=== PATIENT | female | born 1975 | race Caucasian/White ===

== ENCOUNTER 2020-12-24 14:31 | Outpatient (CLI) | payer MEDICARE, SELFPAY | END 2020-12-24 14:32 | disposition home or self-care (01) | LOC: ANHCOVIDVC 14:31 | PROVIDERS: PCP Family Medicine Adolescent Medicine | DX: Z23 Encounter for immunization (principal) | CPT/HCPCS: 0001A; 91300 ==

== ENCOUNTER 2021-01-14 14:30 | Outpatient (CLI) | payer MEDICARE, SELFPAY | END 2021-01-14 14:31 | disposition home or self-care (01) | LOC: ANHCOVIDVC 14:31 | PROVIDERS: PCP Family Medicine Adolescent Medicine | DX: Z23 Encounter for immunization (principal) | CPT/HCPCS: 0002A; 91300 ==

== ENCOUNTER 2021-04-11 17:27 | Emergency (ER) | payer MEDICARE, SELFPAY ==
--- NOTE | ~2021-04-11 | CT_ITS ---
EXAMINATION: CT abdomen pelvis w con INDICATION: Lower abdominal pain TECHNIQUE: Computed tomographic images of the abdomen and pelvis were obtained after the administrati on of 100 cc of Omnipaque 350 intravenous contrast. The dose-length product (DLP) was 1350.49 mGy-cm. Automated exposure control and iterative reconstruction technique were employed. COMPARISON: None available FINDINGS: Minimal dependent atelectasis is present in the lung bases. The heart size is normal. The l iver, spleen, pancreas, gallbladder, and adrenal glands are normal. The right kidney is unremarkable. There is a 10 mm cyst of the left kidney. No pathologically enlarged abdominal or pelvic lymph nodes are identified. There is no free intraperitoneal gas or evidence of bowel obstruction. The appendix is normal. There is circumferential wall thickening of the ascending and transverse colon. An IUD is present in the uterus in expected position. The appendix is normal. There is moderate to severe lower lumbar spondylosis. IMPRESSION: 1. Wall thickening of the ascending and transverse colon, consistent with colitis. Reviewed, dictated and finalized at location A. IMPRESSION: 1. Wall thickening of the ascending and transverse colon, consistent with colit is.
[2021-04-11 18:14] VITALS: BP 150/96; PULSE 108; RESP 16; TEMP 36.7; O2SAT 100
[2021-04-11 19:56] LABS: Basophils Percent Auto 0.2 % (0.2-1.2); Eosinophils Percent Auto 0.1 % (0-4.4); Hematocrit 43.3 % (37.0-47.0); Hemoglobin 14.1 g/dL (12.0-15.0); Immature Granulocyte Absolute 0.08 K/mm3 (0.00-0.031); Immature Granulocyte Percent A 0.5 % (0-0.5); Lymphocytes Absolute Auto 1.55 K/mm3 (0.9-3.2); Mean Corpuscular HGB Conc 32.6 g/dl (32-36); Mean Corpuscular Hemoglobin 27.6 pg (26-34); Mean Corpuscular Volume 84.9 fl (80-100); Mean Platelet Volume 10.4 fl (7.4-10.4); Monocytes Absolute Auto 0.4 K/mm3 (0.1-0.6); Monocytes Percent Auto 2.4 % (2.6-8.5); Neutrophils Absolute Auto 15.1 K/mm3 (1.3-6.7); Neutrophils Percent Auto 87.8 % (45.5-73.1); Platelet Count Result 302 k/mm3 (150-375); Red Cell Distribution Width 14.8 % (11.5-14.5); White Blood Count 17.2 K/mm3 (4.5-10.0)
[2021-04-11 20:07] LABS: Add Urine Microscopic? YES; Appearance Urine Clear (Clear); Bilirubin Urine Negative (Negative); Blood Urine Negative (Negative); Color Urine Yellow (Yellow); Glucose Urine UA Negative (Negative); Ketones Urine Negative (Negative); Leukocyte Esterase Ur Negative LEU/UL (Negative); Mucus Urine Rare /lpf; Nitrate Urine Negative (Negative); Protein Urine 1+ mg/dL (Negative); RBC Urine 0-2 /hpf (0-2); Specific Grav Ur 1.014 (1.001-1.035); Squamous Epithelial Cell Urine Occasional /hpf (Few); Urobilinogen Urine Negative mg/dL (<2.0); WBC Urine 0-3 /hpf
[2021-04-11 20:10] LABS: Alanine Aminotransferase 28 U/L (4-35); Albumin Level 4.7 g/dL (3.5-5.1); Alkaline Phosphatase 116 U/L (38-126); Anion Gap 12 mmol/L (8-16); Aspartate Amino Transferase 27 U/L (14-36); Bilirubin,Total 0.3 mg/dL (0.2-1.3); Blood Urea Nitrogen 9 mg/dL (7-17); Calcium 9.9 mg/dL (8.4-10.2); Carbon Dioxide 22 mmol/L (22-30); Chloride 107 mmol/L (98-107); Estimated CRCL calculation 89 ml/min; Estimated Glomerular Filt Rate > 60; Glucose 118 mg/dL (65-110); Lipase 78 U/L (23-300); Potassium 3.9 mmol/L (3.4-5.0); Sodium 141 mmol/L (137-145)
[2021-04-11] MEDS: SODIUM CHLORIDE 0.9% IV 1,000 ML 999 ML IV CONT (20:29)
[2021-04-11 20:44] VITALS: BP 159/101; PULSE 70; RESP 20; O2SAT 97
[2021-04-11 21:44] VITALS: BP 180/99; PULSE 68; RESP 22; O2SAT 91
--- NOTE | 2021-04-11 21:58 | ED.NAVMDI ---
HPI - Nausea/Vomiting/Diarrhea General Chief complaint: Nausea/Vomiting/Diarrhea Stated complaint: n/v and passing blood from rectum Time Seen by Provider: 04/11/21 19:53 History of Present Illness HPI Narrative: Patient is a 45-year-old female who presents ER with abdominal pain and diarrhea. Abdominal pain is cramping. Started after eating some chicken salad this morning. Associate with some nausea and vomiting. Diarrhea had some blood with it this is recurred several times today feels like she is passing 2 tablespoons of blood at a time. No fevers or chills or sweats. No known sick contacts. No urinary frequency urgency or dysuria. Okay Related Data Allergies Allergy/AdvReac Type Severity Reaction Status Date / Time No Known Allergies Allergy Verified 04/11/21 19:28 Review of Systems Review of Systems: All systems reviewed & are unremarkable except as noted in HPI and below Constitutional: Constitutional: Denies chills, Denies fever(s) and Denies weakness ENT: Denies nasal congestion and Denies sore throat Gastrointestinal: Gastrointestinal: Reports abdominal pain, Reports bloating, Denies constipation, Reports diarrhea, Reports nausea and Reports vomiting Genitourinary: Genitourinary: Denies nocturia, Denies dysuria and Denies flank pain PMFSH Past Medical History Medical History (Updated 04/11/21 @ 22:03 by Shawn Lundberg MD) Asthma Hypertension IBS (irritable bowel syndrome) Surgical History Surgical History (Updated 04/11/21 @ 22:00 by Shawn Lundberg MD) H/O foot surgery Social History Social History (Updated 04/11/21 @ 22:00 by Shawn Lundberg MD) Smoking status: Current every day smoker Gender identity (if verbalized by the patient): Female Exam Narrative: GENERAL: Well-appearing, well-nourished, and in no acute distress. HEAD: Normocephalic, atraumatic. EYES: PERRL and EOMI. ENT: Mucous membranes moist CHEST: Clear to auscultation. No respiratory distress. HEART: Regular rate and rhythm. Normal peripheral pulses. ABDOMEN: Soft, nontender, nondistended. EXTREMITIES: Normal range of motion. No edema. SKIN: Warm, dry, no rash. NEURO: Alert and oriented x3. Course Course Emergency Course: Patient informed of results. Resting comfortably. No reproducible abdominal pain. Cipro Flagyl for home. Vital Signs Vital signs: Vital Signs Temperature 98.1 F 04/11/21 18:14 Pulse Rate 108 H 04/11/21 18:14 Respiratory Rate 16 04/11/21 18:14 Blood Pressure 150/96 H 04/11/21 18:14 Pulse Oximetry 100 04/11/21 18:14 Temperature 98.1 F 04/11/21 18:14 Pulse Rate 68 04/11/21 21:44 Respiratory Rate 22 H 04/11/21 21:44 Blood Pressure 180/99 H 04/11/21 21:44 Pulse Oximetry 91 04/11/21 21:44 MDM - Nausea/Vomiting/Diarrhea Lab Data Result diagrams: 04/11/21 19:49 04/11/21 19:49 Labs: Lab Results 04/11/21 04/11/21 04/11/21 Range/Units 19:49 19:49 19:49 WBC 17.2 H (4.5-10.0) K/mm3 RBC 5.10 (4.2-5.4) M/mm3 Hgb 14.1 (12.0-15.0) g/dL Hct 43.3 (37.0-47.0) % MCV 84.9 (80-100) fl MCH 27.6 (26-34) pg MCHC 32.6 (32-36) g/dl RDW 14.8 H (11.5-14.5) % Plt Count 302 (150-375) k/mm3 MPV 10.4 (7.4-10.4) fl Immature Gran % (Auto) 0.5 (0-0.5) % Neut % (Auto) 87.8 H (45.5-73.1) % Lymph % (Auto) 9.0 L (18.3-44.2) % Callaway % (Auto) 2.4 L (2.6-8.5) % Eos % (Auto) 0.1 (0-4.4) % Baso % (Auto) 0.2 (0.2-1.2) % Lymph # (Auto) 1.55 (0.9-3.2) K/mm3 Callaway # (Auto) 0.4 (0.1-0.6) K/mm3 Eos # (Auto) 0.0 (0-0.3) K/mm3 Baso # (Auto) 0.0 (0.0-0.1) K/mm3 Abs Immat Gran (auto) 0.08 H (0.00-0.031) K/mm3 Absolute Neuts (auto) 15.1 H (1.3-6.7) K/mm3 Absolute Nucleated RBC 0.0 (0.0-0.012) K/mm3 Nucleated RBC % 0.0 (0.0-0.2) % Sodium 141 (137-145) mmol/L Potassium 3.9 (3.4-5.0) mmol/L Chloride 107 (98-107) mmol/L Carbo
[2021-04-11 22:24] VITALS: BP 170/80; PULSE 72; RESP 16; O2SAT 98
== END 2021-04-11 22:16 | disposition home or self-care (01) ==
PROVIDERS: Emergency Provider Emergency Medicine; PCP Family Medicine Adolescent Medicine
DX: K52.9 Noninfective gastroenteritis and colitis, unspecified (principal); J45.909 Unspecified asthma, uncomplicated; I10 Essential (primary) hypertension; K58.9 Irritable bowel syndrome, unspecified; F17.200 Nicotine dependence, unspecified, uncomplicated
CPT/HCPCS: 36415; 74177; 80053; 81001; 81025; 83690; 85025; 96360; 99284; J7030; Q9967

== ENCOUNTER 2022-01-25 10:45 | Outpatient (CLI) | payer MEDICARE, SELFPAY ==
--- NOTE | ~2022-01-25 | MR_ITS ---
EXAMINATION: MR lumbar spine wo con DATE: 01/25/2022 11:15 INDICATION: Sciatica, right side. Low back pain. TECHNIQUE: Magnetic resonance imaging (MRI) of the lumbar spine was performed without intravenous con trast. Sequences included sagittal T2-weighted FSE, sagittal T2-weighted FS FSE, sagittal T1-weighted FSE, and axial T2-weighted FSE. COMPARISON: Lumbar spine MRI 04/08/2016 FINDINGS: There is 8 degrees levocurvature of lumbar spine. Vertebral body heights are normal. There is mildly decreased disc height at L3 than L4 and L4-L5 and severely decreased disc height at L5-S1 w ith endplate remodeling. The distal spinal cord signal intensity is normal. The conus medullaris is a t T12-L1. The following disc levels are specifically discussed: L1-L2: The disc does not extend beyond the endplate margin. There is mild bilateral facet joint osteo arthritis. There is no neural foraminal stenosis. There is no central canal stenosis. L2-L3: The disc does not extend beyond the endplate margin. There is severe bilateral facet joint ost eoarthritis. There is no neural foraminal stenosis. There is no central canal stenosis. L3-L4: There is an extrusion from the left foraminal to left central zones. There is moderate bilater al facet joint osteoarthritis. There is mild right and moderate left neural foraminal stenosis. There is mild central canal stenosis. Posterior decompression is noted. L4-L5: The disc is bulging. There is severe bilateral facet joint osteoarthritis. There is moderate b ilateral neural foraminal stenosis. There is mild central canal stenosis. There is moderate stenosis of right lateral recess. Posterior decompression is noted. L5-S1: The disc is bulging and has an annular fissure. There is moderate bilateral facet joint osteoa rthritis. There is mild right and moderate left neural foraminal stenosis. There is mild central selene l stenosis. There is posterior decompression. IMPRESSION: 1. Severe lower lumbar spondylosis, stable from 04/08/2016. Reviewed, dictated and finalized at location B.
== END 2022-01-25 10:46 ==
PROVIDERS: PCP Family Medicine Adolescent Medicine; Visit Provider Physician Assistant
DX: M54.31 Sciatica, right side (principal); M47.896 Other spondylosis, lumbar region
CPT/HCPCS: 72148

== ENCOUNTER 2023-01-19 01:13 | Day surgery (SDC) | payer MEDICARE, SELFPAY ==
[2023-01-11 15:15] VITALS: BMI 46.3
--- NOTE | 2023-01-18 15:34 | PM.HPGS ---
History of Present Illness History of Present Illness Consent: Risks, benefits, and alternatives have been discussed and questions answered. Patient agrees to proceed with procedure. Chief complaint: neoplasm screening Narrative: Dafne Malcolm is a 47 year old female Referred for colon cancer screening. Review of Systems Review of Systems: All systems reviewed & are unremarkable except as noted in HPI and below PMFSH Past Medical History Medical History Anxiety Asthma Bilateral sciatica Chronic headaches Congestion of nasal sinus Depression Fibromyalgia Hypertension IBS (irritable bowel syndrome) Lumbar spondylosis Lumbar stenosis Mild persistent asthma Obstructive sleep apnea (adult) (pediatric) Trochanteric bursitis of right hip Wears glasses Weight gain Wheezing Surgical History Surgical History H/O foot surgery History of back surgery Family History Family History Mother Cervical cancer Grandparent Breast cancer Heart disease Cerebrovascular accident Father Heart disease Diabetes mellitus Other Arthritis Asthma Depression Hypertension Social History Social History Smoking status: Current every day smoker Second hand tobacco smoke exposure: No Alcohol intake: never Substance use: current Substance use type: marijuana Other substance usage details: Daily Living arrangements: with family Occupation/Education: other Gender identity (if verbalized by the patient): Female Sexual Orientation (if Verbalized by the Patient): Straight or Heterosexual Spiritual care concerns: No Agree to blood products: Yes Meds Home Medications and Allergies Home Medications Medication Instructions Recorded Confirmed Type albuterol sulfate 90 mcg/actuation 2 puff inhalation Q4H PRN 08/31/22 01/11/23 Rx aerosol inhaler (Ventolin HFA) shortness of breath or wheezing #8.5 grams amitriptyline 50 mg tablet 50 mg PO TID #90 tabs 08/31/22 01/11/23 Rx buspirone 15 mg tablet 15 mg PO BID #60 tabs 08/31/22 01/11/23 Rx pregabalin 75 mg capsule 75 mg PO BID #60 caps 08/31/22 01/11/23 Rx zolpidem 10 mg tablet 10 mg PO QHS PRN insomnia #30 tabs 10/03/22 01/11/23 Rx duloxetine 60 mg capsule,delayed 60 mg PO DAILY #30 caps 12/13/22 01/11/23 Rx release fluticasone propionate 115 2 puff inhalation BID #12 grams 12/13/22 01/19/23 Rx mcg-salmeterol 21 mcg/actuation HFA inhaler (Advair HFA) lisinopril 20 mg tablet 20 mg PO BID #180 tabs 12/13/22 01/11/23 Rx tizanidine 4 mg tablet 4 mg PO Q6H PRN muscle spasticity 01/02/23 01/11/23 Rx #40 tabs Allergies Allergy/AdvReac Type Severity Reaction Status Date / Time No Known Allergies Allergy Verified 01/19/23 07:35 Exam Const: General: alert Orientation/consciousness: patient oriented x3 Resp: Auscultation: clear to auscultation bilaterally Cardio: Rhythm: regular rhythm GI: GI Palp: Yes Soft to palpation and No Tenderness to palpation present (GI) Neuro: General: patient oriented x3 Assessment and Plan Assessment and plan (1) Colon cancer screening: Code(s): Z12.11 - Encounter for screening for malignant neoplasm of colon Status: Acute Assessment and Plan: Colonoscopy with possible biopsy or polypectomy or cautery or injection of substances.
[2023-01-19 07:37] VITALS: BP 142/96; PULSE 87; RESP 18; TEMP 36.6; O2SAT 99; BMI 44.7
[2023-01-19] MEDS: LACTATED RINGERS 1,000 ML 150 ML IV CONT (07:40)
--- NOTE | 2023-01-19 08:12 | WPDANESEPPF ---
Anes - Initial Pre Proc Eval Procedure: Operation Date: 01/19/23 08:30 Proposed Procedures p Screening Colonoscopy - Hugh Grady MD Date/Time: 01/19/23 08:12 Surgeon: Hugh Grady MD Pre Op Diagnosis: neoplasm screening Patient Data Age: 47 Gender: F Height: 1.57 m Weight: 110.9 kg Last Vital Signs Temp 97.8 F 01/19/23 07:37 Pulse 87 01/19/23 07:37 Resp 18 01/19/23 07:37 BP 142/96 H 01/19/23 07:37 Pulse Ox 99 01/19/23 07:37 O2 Del Method Room Air 01/19/23 07:37 Allergies Allergy/AdvReac Type Severity Reaction Status Date / Time No Known Allergies Allergy Verified 01/19/23 07:35 Home Medications Medication Instructions Recorded Confirmed Type albuterol sulfate 90 mcg/actuation 2 puff inhalation Q4H PRN 08/31/22 01/11/23 Rx aerosol inhaler (Ventolin HFA) shortness of breath or wheezing #8.5 grams amitriptyline 50 mg tablet 50 mg PO TID #90 tabs 08/31/22 01/11/23 Rx buspirone 15 mg tablet 15 mg PO BID #60 tabs 08/31/22 01/11/23 Rx pregabalin 75 mg capsule 75 mg PO BID #60 caps 08/31/22 01/11/23 Rx zolpidem 10 mg tablet 10 mg PO QHS PRN insomnia #30 tabs 10/03/22 01/11/23 Rx duloxetine 60 mg capsule,delayed 60 mg PO DAILY #30 caps 12/13/22 01/11/23 Rx release fluticasone propionate 115 2 puff inhalation BID #12 grams 12/13/22 01/19/23 Rx mcg-salmeterol 21 mcg/actuation HFA inhaler (Advair HFA) lisinopril 20 mg tablet 20 mg PO BID #180 tabs 12/13/22 01/11/23 Rx tizanidine 4 mg tablet 4 mg PO Q6H PRN muscle spasticity 01/02/23 01/11/23 Rx #40 tabs Patient hx anesthesia problems: none Family hx anesthesia problems: none Results Review: All pre-operative results and documents have been reviewed as part of the pre-operative evaluation. [facility] Past Medical History Medical History Anxiety Asthma Bilateral sciatica Chronic headaches Congestion of nasal sinus Depression Fibromyalgia Hypertension IBS (irritable bowel syndrome) Lumbar spondylosis Lumbar stenosis Mild persistent asthma Obstructive sleep apnea (adult) (pediatric) Trochanteric bursitis of right hip Wears glasses Weight gain Wheezing Surgical History Surgical History H/O foot surgery History of back surgery Family History Family History Mother Cervical cancer Grandparent Breast cancer Heart disease Cerebrovascular accident Father Heart disease Diabetes mellitus Other Arthritis Asthma Depression Hypertension Social History Social History Smoking status: Current every day smoker Second hand tobacco smoke exposure: No Alcohol intake: never Substance use: current Substance use type: marijuana Other substance usage details: Daily Living arrangements: with family Occupation/Education: other Gender identity (if verbalized by the patient): Female Sexual Orientation (if Verbalized by the Patient): Straight or Heterosexual Spiritual care concerns: No Agree to blood products: Yes Anes - Eval Final PreProcedure Day of Procedure 01/19/23 08:12 Patient weight: morbidly obese Heart: regular rate and rhythm Lungs: clear to auscultation Airway: Mallampati scale class III Neurological: alert and oriented Last oral intake: >/= 8 hours ASA classification: III Emergent: no Anesthetic plan: proceed Anesthesia type and monitoring: general GIVS and standard monitoring Results Review: All pre-operative results and documents have been reviewed as part of the pre-operative evaluation. Informed Consent: The patient's anesthetic plan and its attendant risks and benefits were discussed with the patient/family/POA. Questions were solicited and answers provided to the satisfaction of the patient/family/POA.
[2023-01-19 08:56] VITALS: BP 106/62; PULSE 86; RESP 22; O2SAT 100
[2023-01-19 09:06] VITALS: BP 122/71; PULSE 87; RESP 21; O2SAT 100
[2023-01-19 09:16] VITALS: BP 124/92; PULSE 73; RESP 24; O2SAT 100
== END 2023-01-19 09:20 | disposition home or self-care (01) ==
PROVIDERS: PCP Family Medicine Adolescent Medicine; Visit Provider Internal Medicine Gastroenterology
PROC: 0DJD8ZZ Inspection of Lower Intestinal Tract, Via Natural or Artificial Opening Endoscopic (ICD-10-PCS; CPT 45378; principal; 2023-01-19 08:30)
DX: Z12.11 Encounter for screening for malignant neoplasm of colon (principal); K63.5 Polyp of colon; I10 Essential (primary) hypertension; J45.30 Mild persistent asthma, uncomplicated; F41.9 Anxiety disorder, unspecified; F32.A Depression, unspecified; M79.7 Fibromyalgia; K58.9 Irritable bowel syndrome, unspecified; G47.33 Obstructive sleep apnea (adult) (pediatric); Z79.51 Long term (current) use of inhaled steroids; F12.90 Cannabis use, unspecified, uncomplicated; E66.01 Morbid (severe) obesity due to excess calories; Z68.41 Body mass index [BMI] 40.0-44.9, adult
CPT/HCPCS: 45380; 88305; J2704; J7120

== ENCOUNTER 2025-04-13 18:40 | Emergency (ER) | payer MEDICARE, SELFPAY ==
--- NOTE | ~2025-04-13 | CT_ITS ---
EXAMINATION: CT abdomen pelvis w con DATE: 04/13/2025 21:44 INDICATION: RUQ abdominal pain TECHNIQUE: Computed tomography (CT) of the abdomen and pelvis was performed with 100 mL Omnipaque-350 intravenous contrast. Automated exposure control and iterative reconstruction technique were employe d. The dose-length product was 832.84 mGy-cm. COMPARISON: 04/11/2021. FINDINGS: Lower thorax: Dependent scar/atelectasis. Liver: Normal. Biliary/Gallbladder: Gallbladder is normal. No bile duct dilation. Pancreas: No mass or duct dilation. Spleen: Normal. Adrenals:No mass. Kidneys: No suspicious mass, obstructing stone, or hydronephrosis. Simple exophytic left upper pole c yst GI tract: Mild distal esophageal and gastric wall edema. No small or large bowel dilation. Hypermobil e cecum. Normal appendix. Mesentery/Peritoneum: No ascites, mass, or free air. Retroperitoneum: No mass. Pelvis: Normal urinary bladder. IUD, in good position. Otherwise normal uterus. Normal bilateral ovar ies. Simple appearing 2.3 right ovarian cyst. Right corpus luteal cyst. Simple cyst or dominant folli katharine in the left ovary.. Soft Tissues: Small uncomplicated fat-containing umbilical hernia. Bones: No acute osseous finding. IMPRESSION: Mild esophagitis/gastritis. Reviewed, dictated and finalized at location K. IMPRESSION: Mild esophagitis/gastritis.
[2025-04-13 18:41] VITALS: BP 150/108; PULSE 103; RESP 18; TEMP 36.2; O2SAT 100
--- OUTSIDE RECORDS SUMMARY | 2025-04-13 18:41 | XMS_ITS | Clinical Summary ---
Author Organization [facility] Address [address] [place] [address] Care Team Providers Care Warp Splitter Name Role Phone Troy Carter MD Primary Care Prov ider Allergies No known active allergies Medications pregabalin (LYRICA) 75 mg capsule Take 1 capsule (75 mg total) by mouth 2 (two) times a day Active busPIRone (BUSPAR) 15 mg tabletIndicatio ns:Generalized Anxiety Disorder Take 1 tablet (15 mg total) by mouth 2 (two) times a day Active DULoxetine DR (CYMBALTA) 60 mg capsule Take 1 capsule (60 mg total) by mouth daily Active lisinopriL (PRINIVIL,ZESTR IL) 20 mg tablet Take 1 tablet (20 mg total) by mouth daily Active diphenhydrAMINE (BENADRYL) 25 mg capsule Take 1 tablet/capsule (25 mg total) by mouth every 6 (six) hours as needed for itching Active methylcellulose oral powder Take by mouth daily Active zolpidem (AMBIEN) 10 mg tabletIndicatio ns:Sleep-Onset Insomnia Take 1 tablet (10 mg total) by mouth nightly as needed for sleep Active albuterol HFA (PROVENTIL HFA,VENTOLIN HFA,PROAIR HFA) 90 mcg/actuation inhaler Active amitriptyline (ELAVIL) 50 mg tablet Take 1 tablet (50 mg total) by mouth 3 (three) times a day 3 Active Advair HFA 115-21 mcg/actuation inhaler 3 Active tiZANidine (ZANAFLEX) 4 mg tablet Take 1 tablet (4 mg total) by mouth every 6 (six) hours as needed 3 Active ergocalciferol (VITAMIN D) 50,000 unit capsuleIndicati ons:Vitamin D Deficiency Take 1 capsule (50,000 Units total) by mouth once a week 8 capsule 4 Active phentermine (ADIPEX-P) 37.5 mg tablet Take 1 tablet (37.5 mg total) by mouth daily 4 Active semaglutide (WEGOVY) 1 mg/0.5 mL auto-injector Inject 0.5 mL (1 mg total) under the skin every 7 days Active clindamycin (CLEOCIN T) 1 % lotion Apply topically 2 (two) times a day 4 Active Active Problems Problem Noted Date Diagnosed Date BMI 40.0-44.9, adult 11/08/2023 BMI 45.0-49.9, adult 09/20/2023 Lumbosacral radiculopathy 09/20/2023 ESR raised 06/16/2021 Assessment & Plan (06/16/2021 9:13 AM CDT): Normal for sex and age CRP elevated 06/16/2021 Assessment & Plan (06/16/2021 9:14 AM CDT): Very mildly elevated and represents a nonspecific finding. Not likely related to systemic autoimmune/inflammatory disorder. Fibromyalgia 06/16/2021 Assessment & Plan (06/16/2021 9:31 AM CDT): The patient's symptoms are not consistent with any systemic inflammatory/autoimmune condition. Her symptoms are also classic for fibromyalgia. She has classic comorbid sleep issues, chronic fatigue, chronic pain, depression, IBS. Her ESR is within normal limits for her sex and age and her CRP is only very mildly elevated. Her CK is also only very mildly elevated. These findings are very nonspecific and did not raise concern for systemic autoimmune condition. Would recommend treatment for fibromyalgia and comorbid conditions. No further autoimmune workup at this time. Recommendations -management of depression per primary care provider; encouraged the patient to seek out counseling for MDD -Initiate an exercise program; recommended aquatic exercise -manage poor sleep with appropriate sleep hygiene, potential referral to sleep medicine -management of IBS -Could consider increase in Duloxetine to 90 mg if patient has had some benefit with 60 mg dose. -no need for rheumatology follow-up unless symptoms change Surgical History Surgery Date Site/Laterality Comments FL UPPER GI AIR CONTRAST W KUB 07/31/2023 Bilateral KNEE ARTHROSCOPY W/ LATERAL RELEASE 2013? SPINE SURGERY 2015 2015- decompression L4/5/S1 ([facility] [place] Medical History Medical History Date Comments Anxiety 2015 Asthma 1994 Depression 2015 Hypertension Sleep apnea 2020 Family History Medical History Relation Name Comments COPD Father Jian Malcolm Clotting disorder Father Jian Malcolm Depression Father Jian Malcolm Diabetes Father Jian [place] Early Father Jian Malcolm Heart attack Father Jian Malcolm Hypertension Father Jian [place] Obesity Father Jian Malcolm Asthma Mother Jodi Malcolm Cancer Mother Jodi Malcolm Depression Mother Jodi Malcolm Hypertension Mother Jodi Malcolm Relation Name Status Comments Father Jian Malcolm Mother Jodi Malcolm Social History Tobacco Use Types Packs/Day Years Used Date Smoking Tobacco: Former Cigarettes 0 09/11/1995 - 09/11/2000 Smokeless Tobacco: Never Tobacco Cessation:Counseling Given: Not Answered AUDIT-C Answer Date Recorded Frequency of Alcohol Consumption Not on file 05/07/2024 Q2: How many drinks containi ng alcohol do you have on a typical day when you are drinking? 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 Gender Identity Female 05/29/2023 10:52 AM CDT Sexual Orientation Not on file Obstetrics History Last Filed Vital Signs Vital Sign Reading Time Taken Comments Blood Pressure 126/86 05/07/2024 8:17 AM CDT Pulse 91 05/07/2024 8:17 AM CDT Temperature 36.7 C (98 F) 05/07/2024 8:17 AM CDT Respiratory Rate 16 07/31/2023 10:3 3 AM GENERAL TECHNICIAN Oxygen Saturation - - Inhaled Oxygen Concentration - - Weight 104.5 kg (230 lb 4.8 oz) 05/07/2024 8:17 AM CDT Height 157.5 cm (5' 2) 05/07/2024 8:17 AM CDT Body Mass Index 42.12 05/07/2024 8:17 AM CDT Plan of Treatment Health Maintenance Due Date Last Done Comments Breast Cancer Screening-Mammogram 1977 Cervical Cancer Screening 1977 Colon Cancer Screening-Colonoscopy 1977 Depression Screening 1977 Hepatitis C Screening 1977 DTaP/Tdap/Td Vaccine (1 - Tdap) 1988 Hepatitis B Screening 1995 Regular Well Visit/Exam 18-64 1995 Covid-19 Vaccine (3 2023-2 5 season) 2024 01/14/2021, 12/24/2020 Influenza Vaccine (#1) 2025 07/08/2020 Pneumococcal vaccine <65 Aged Out No longer eligible based on patient's age to complete this topic Medical Devices Implanted Type Area Baby Counselor Device Identifier Shelf Expiration Date Model / Serial / Lot Orthopedic Hardware-Left Ankle Ankle Insurance [employer] MEDICARE PPO OLX MEDICARE PPO Care Teams Warp Splitter Relationship Specialty Start Date End Date Troy Carter MD [address] [place] [address] PCP - General Family Medicine 04/02/21
--- OUTSIDE RECORDS SUMMARY | 2025-04-13 18:41 | XMS_ITS | Clinical Summary ---
Author Organization [facility] Address [facility] [place] [address] Care Team Providers Care Rn Pacu Name Role Phone Troy Carter MD Primary Care Provider [phone] Social History Tobacco Use Types Packs/Day Years Used Date Smoking Tobacco: Never Assessed Comments Unknown Sex and Gender Information Value Date Recorded Sex Assigned at Not on file Legal Sex Female 7:34 PM CDT Gender Identity Not on file Sexual Orientation Not on file Last Filed Vital Signs Vital Sign Reading Time Taken Comments Blood Pressure 122/78 04/14/2016 10:07 AM CDT Pulse - - Temperature - - Respiratory Rate - - Oxygen Saturation - - Inhaled Oxygen Concentration - - Weight 96.2 kg (212 lb) 04/14/2016 10:07 AM CDT Height 157.5 cm (5' 2) 02/01/2016 1:55 PM CDT Body Mass Index 38.78 02/01/2016 1:55 PM CDT Plan of Treatment Health Maintenance Due Date Last Done Comments Cervical Cancer Screening Pa p Smear (Age 30 to 64) Every 3 Years 1977 Colorectal Cancer Screening Colonoscopy (10 Years) 1977 Annual Physical 1980 Hepatitis C 1995 DTaP, Tdap and Td Vaccines ( 1 - Tdap) 1996 Hepatitis B Vaccines (1 of 3 - 19+ 3-dose series) 1996 Cervical Cancer Screening Pa p with HPV Testing (Age 30 to 64) Every 5 Years 2007 Cervical Cancer Screening with HPV 2007 Mammogram Screening 2017 COVID-19 Vaccine (2023-2 5 season) 2024 Meningococcal B Vaccine Aged Out No l onger eligible based on patient's age to complete this topic Meningococcal Vaccine Aged Out No [place] eligible based on patient's age to complete this topic Pneumococcal Vaccine: Pediat rics (0 to 5 Years) and At-Risk Patients (6 to 49 Years) Aged Out No longer eligible b ased on patient's age to complete this topic RSV Immunizations Under 20 Months Aged Out No longer eligible based on patient's age to complete this topic Care Teams Rn Pacu Relationship Specialty Start Date End Date Troy Carter MD [address] [place] [id number] PCP - General 03/24/16
--- OUTSIDE RECORDS SUMMARY | 2025-04-13 18:41 | XMS_ITS | Referral Summary ---
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 Gender Identity Female 05/29/2023 10:52 AM CDT Sexual Orientation Not on file Last Filed Vital Signs Vital Sign Reading Time Taken Comments Blood Pressure 126/86 05/07/2024 8:17 AM CDT Pulse 91 05/07/2024 8:17 AM CDT Temperature 36.7 C (98 F) 05/07/2024 8:17 AM CDT Respiratory Rate 16 07/31/2023 10:3 3 AM SKIP PIT WORKER Oxygen Saturation - - Inhaled Oxygen Concentration - - Weight 104.5 kg (230 lb 4.8 oz) 05/07/2024 8:17 AM CDT Height 157.5 cm (5' 2) 05/07/2024 8:17 AM CDT Body Mass Index 42.12 05/07/2024 8:17 AM CDT Plan of Treatment Not on file Medical Devices Implanted Type Area Complaint Clerk Device Identifier Shelf Expiration Date Model / Serial / Lot Orthopedic Hardware-Left Ankle Ankle Insurance [employer] MEDICARE PPO [employer] MEDICARE PPO Care Teams Day Ha[employer] Bus Driver Relationship Specialty Start Date End Date Troy Carter MD [address] [place] [address] PCP - General Family Medicine 04/02/21
--- OUTSIDE RECORDS SUMMARY | 2025-04-13 20:08 | XMS_ITS | Referral Summary ---
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 Gender Identity Female 05/29/2023 10:52 AM CDT Sexual Orientation Not on file Last Filed Vital Signs Vital Sign Reading Time Taken Comments Blood Pressure 126/86 05/07/2024 8:17 AM CDT Pulse 91 05/07/2024 8:17 AM CDT Temperature 36.7 C (98 F) 05/07/2024 8:17 AM CDT Respiratory Rate 16 07/31/2023 10:3 3 AM SEISMOGRAPHER Oxygen Saturation - - Inhaled Oxygen Concentration - - Weight 104.5 kg (230 lb 4.8 oz) 05/07/2024 8:17 AM CDT Height 157.5 cm (5' 2) 05/07/2024 8:17 AM CDT Body Mass Index 42.12 05/07/2024 8:17 AM CDT Plan of Treatment Not on file Medical Devices Implanted Type Area Server Engineer Device Identifier Shelf Expiration Date Model / Serial / Lot Orthopedic Hardware-Left Ankle Ankle Insurance [employer] MEDICARE PPO [employer] MEDICARE PPO Care Teams Embedded Software Test Engineer Relationship Specialty Start Date End Date Troy Carter MD [address] [place] [address] PCP - General Family Medicine 04/02/21
--- OUTSIDE RECORDS SUMMARY | 2025-04-13 20:08 | XMS_ITS | Clinical Summary ---
Author Organization [facility] Address [facility] [place] [address] Care Team Providers Care Prison Guard Name Role Phone Troy Carter MD Primary Care Provider [phone]- [phone] Social History Tobacco Use Types Packs/Day Years [...] age to complete this topic Care Teams Prison Guard Relationship Specialty Start Date End Date Troy Carter MD [address] [place] [id number] PCP - General 03/24/16
--- OUTSIDE RECORDS SUMMARY | 2025-04-13 20:08 | XMS_ITS | Clinical Summary ---
Author Organization [facility] Address [address] [place] [address] Care Team Providers Care Attendant Sales Name Role Phone Troy Carter MD Primary [...] 2013? 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 Gender Identity Female 05/29/2023 10:52 AM CDT Sexual Orientation Not on file Obstetrics History Last Filed Vital Signs Vital Sign Reading Time Taken Comments Blood Pressure 126/86 05/07/2024 8:17 AM CDT Pulse 91 05/07/2024 8:17 AM CDT Temperature 36.7 C (98 F) 05/07/2024 8:17 AM CDT Respiratory Rate 16 07/31/2023 10:3 3 AM RADIO REPAIRER Oxygen Saturation - - Inhaled Oxygen Concentration [...] this topic Medical Devices Implanted Type Area Psychologist Private Practice Device Identifier Shelf Expiration Date Model / Serial / Lot Orthopedic Hardware-Left Ankle Ankle Insurance [employer] MEDICARE PPO [employer] MEDICARE PPO Care Teams Attendant Sales Relationship Specialty Start Date End Date Troy Carter MD [address] [place] [address] PCP - General Family Medicine 04/02/21
--- NOTE | 2025-04-13 20:29 | ECG_ITS ---
Test Date: 2025-04-13 20:48:08 Measurements Intervals [place] Rate: 72 P: 51 MN: 143 QRS: 17 QRSD: 92 T: 29 QT: 393 QTc: 431 Interpretive Statements SINUS RHYTHM NORMAL ECG No previous ECG available for comparison Electronically Signed On 04-14-2025 06:19:25 CDT by Trell Mak D.O.
--- NOTE | 2025-04-13 20:30 | ED_ITS ---
HPI - Abdominal Pain General Chief Complaint: Abdominal Pain Stated Complaint: abd pain Time Seen by Provider: 04/13/25 19:52 History of Present Illness HPI narrative: Patient is a 49-year-old female who presents to the ER with upper abdominal pain. She reports she started experiencing intense pain around 1:00 p.m. this afternoon. Patient reports she experienced the same sensation approximately 7- 10 days ago. She endorses increased gurgling, increased gassiness, cramping, and reports ?I could not stand up straight. Patient reports she recently stopped Wegovy d/t the costs. She reports her last bowel movement was this morning but it was ?small. Patient denies any urinary symptoms, recent fevers, new back pain. Related Data Allergies Allergy/AdvReac Type Severity Reaction Status Date / Time No Known Allergies Allergy Verified 04/13/25 18:44 Review of Systems 2 Review of Systems: All systems reviewed & are unremarkable except as noted in HPI and below PMFSH Past Medical History Medical History Obstructive sleep apnea (adult) (pediatric) Fibromyalgia Anxiety Depression Wheezing Congestion of nasal sinus Wears glasses Chronic headaches Weight gain Trochanteric bursitis of right hip Lumbar stenosis Lumbar spondylosis Bilateral sciatica Mild persistent asthma IBS (irritable bowel syndrome) Asthma Hypertension Surgical History Surgical History History of back surgery H/O foot surgery Family History Family History Mother Cervical cancer Grandparent Breast cancer Heart disease Cerebrovascular accident Father Heart disease Diabetes mellitus Other Arthritis Asthma Depression Hypertension Social History Social History Smoking status: Current every day smoker Second hand tobacco smoke exposure: No Alcohol intake: never Substance use: current Substance use type: marijuana Other substance usage details: Daily Living arrangements: with family Occupation/Education: other Gender identity (if verbalized by the patient): Female Sexual Orientation (if Verbalized by the Patient): Straight or Heterosexual Spiritual care concerns: No Agree to blood products: Yes Exam 2 Narrative: GENERAL: Well appearing, well-nourished, non-toxic, in no acute distress. HEAD: Normocephalic, atraumatic. NECK: Supple. No adenopathy, no masses. RESPIRATORY: Airway patent, respirations nonlabored. Clear to auscultation bilaterally, no rales, rhonchi, wheezing. CARDIOVASCULAR: Regular rate and rhythm without murmurs, rubs, or gallops. Peripheral pulses 2+ and equal bilaterally. ABDOMINAL: Soft, tender, distended. Normoactive BS. Positive Maya's sign. MUSCULOSKELETAL: Moves all extremities. Strength/ROM intact without gross deformities. SKIN: Warm, dry, normal color. No rashes. NEURO: A&O X3. Speech clear. Cranial nerves II-XII intact. No ataxic movements. PSYCHIATRIC: Appropriate mood and affect. Normal interaction. Course Vital Signs Vital signs: Vital Signs Temperature 36.2 C L 04/13/25 18:41 Pulse Rate 103 H 04/13/25 18:41 Respiratory Rate 18 04/13/25 18:41 Blood Pressure 150/108 H 04/13/25 18:41 Pulse Oximetry 100 04/13/25 18:41 Oxygen Delivery Room Air 04/13/25 18:41 Temperature 36.2 C L 04/13/25 18:41 Pulse Rate 79 04/13/25 21:30 Respiratory Rate 20 04/13/25 21:30 Blood Pressure 153/112 H 04/13/25 21:30 Pulse Oximetry 100 04/13/25 21:30 Oxygen Delivery Room Air 04/13/25 18:41 MDM - Abdominal Pain MDM Narrative Medical decision making narrative: Patient is a 49-year-old female who presents to the ER with upper abdominal pain. She reports she started experiencing intense pain around 1:00 p.m. this afternoon. Patient reports she experienced the same sensation approximately 7- 10 days ago. She endorses increased gurgling, increased gassiness, cramping, and reports ?I could not stand up straight. Patient reports she recently stopped Wegovy d/t the costs. She reports her last bowel movement was this morning but it was ?small. Patient denies any urinary symptoms, recent fevers, new back pain. Labs Ordered: CBC, CMP, lipase, PTT, INR, troponin Imaging Ordered: CT abdomen pelvis Medications Ordered: Dilaudid IV, 1 L normal saline IV bolus Results: Patient's CT scan indicates Lower thorax: Dependent scar/atelectasis. Liver: Normal. Biliary/Gallbladder: Gallbladder is normal. No bile duct dilation. Pancreas: No mass or duct dilation. Spleen: Normal. Adrenals:No mass. Kidneys: No suspicious mass, obstructing stone, or hydronephrosis. Simple exophytic left upper pole cyst GI tract: Mild distal esophageal and gastric wall edema. No small or large bowel dilation. Hypermobile cecum. Normal appendix. Mesentery/Peritoneum: No ascites, mass, or free air. Retroperitoneum: No mass. Pelvis: Normal urinary bladder. IUD, in good position. Otherwise normal uterus. Normal bilateral ovaries. Simple appearing 2.3 right ovarian cyst. Right corpus luteal cyst. Simple cyst or dominant follicle in the left ovary.. Soft Tissues: Small uncomplicated fat-containing umbilical hernia. Bones: No acute osseous finding. Diagnosis: Gastritis Patient Education/Shared MDM: Results of lab work and imaging shared with patient. She endorses improvement of symptoms following medication administration. Patient strongly advised to maintain hydration status upon discharge and follow-up with her PCP as soon as possible. She will be discharged home with a prescription for Prilosec, Zofran and Bentyl. Strict return precautions provided. Patient verbalized understanding and is in agreement with plan. Vital signs stable at time of discharge. All questions answered. Differential Diagnosis Differential diagnosis: Likely abdominal pain, calculus of kidney, gastroenteritis, pancreatitis, small bowel obstruction and other (Cholecystitis) Lab Data Attestation: I reviewed the patient's lab results. 04/13/25 20:41 04/13/25 20:41 Labs: Lab Results 04/13/25 04/13/25 Range/Units 20:41 20:48 WBC 12.2 H (4.5-10.0) K/mm3 RBC 4.77 (4.2-5.4) M/mm3 Hgb 14.4 (12.0-15.0) g/dL Hct 44.1 (37.0-47.0) % MCV 92.5 (80-100) fl MCH 30.2 (26-34) pg MCHC 32.7 (32-36) g/dl RDW 13.1 (11.5-14.5) % Plt Count 249 (150-375) k/mm3 MPV 9.7 (7.4-10.4) fl Immature Gran % (Auto) 0.6 H (0-0.5) % Neut % (Auto) 59.4 (45.5-73.1) % Lymph % (Auto) 31.7 (18.3-44.2) % [place] % (Auto) 4.4 (2.6-8.5) % Eos % (Auto) 3.2 (0-4.4) % Baso % (Auto) 0.7 (0.2-1.2) % Lymph # (Auto) 3.85 H (0.9-3.2) K/mm3 [place] # (Auto) 0.5 (0.1-0.6) K/mm3 Eos # (Auto) 0.4 H (0-0.3) K/mm3 Baso # (Auto) 0.1 (0.0-0.1) K/mm3 Abs Immat Gran (auto) 0.07 H (0.00-0.031) K/mm3 Absolute Neuts (auto) 7.2 H (1.3-6.7) K/mm3 Absolute Nucleated RBC 0.000 (0.0-0.012) K/mm3 Nucleated RBC % 0.0 (0.0-0.2) % PT 12.8 (11.1-14.7) Seconds INR 0.9 APTT 38.3 H (22.3-36.8) Seconds Sodium 141 (137-145) mmol/L Potassium 3.8 (3.4-5.0) mmol/L Chloride 106 (98-107) mmol/L Carbon Dioxide 24 (22-30) mmol/L Anion Gap 11 (4-12) mmol/L BUN 8 (7-17) mg/dL Creatinine 0.79 (0.7-1.0) mg/dL Estim Creat Clear Calc 77 ml/min Estimated GFR > 60 (59 - ) Glucose 95 (65-110) mg/dL Calcium 9.3 (8.4-10.2) mg/dL Total Bilirubin 0.4 (0.2-1.3) mg/dL AST 34 (14-36) U/L ALT 26 (6-35) U/L Alkaline Phosphatase 90 (38-126) U/L Troponin I < 0.012 (0.000-0.034) ng/mL Total Protein 7.7 (6.3-8.2) g/dL Albumin 4.4 (3.5-5.1) g/dL Lipase 131 (23-300) U/L Urine Color Yellow (Yellow) Urine Appearance Clear (Clear) Urine pH 6.5 (5.0-9.0) Ur Specific Blum 1.006 (1.001-1.035) Urine Protein Negative (Negative) mg/dL Urine Glucose (UA) Negative (Negative) mg/dL Urine Ketones Negative (Negative) mg/dL Ur Blood (Man) Negative (Negative) Urine Nitrate Negative (Negative) Urine Bilirubin Negative (Negative) Urine Urobilinogen 0.2 (<2.0) mg/dL Leukocyte Esterase Rfl Negative (Negative) MIGNON/UL POC Urine HCG, Qual Negative (Negative) Imaging Data Attestation: I personally reviewed and interpreted this imaging study as follows: Radiologist's impression: ITS Impressions Abdomen/Pelvis CT 04/13/25 21:48 IMPRESSION: Mild esophagitis/gastritis. Discharge Plan Discharge Clinical Impression: Gastritis, Esophagitis with gastritis, Abdominal pain Patient Disposition: Home Condition: Stable Instructions: Antibiotic Form, Gastritis (ED) Additional Instructions: Please return to the ER with any worsening symptoms. Follow-up with primary care provider as soon as possible. Take all medications as prescribed, including regularly scheduled medications. You may use Prilosec, Zofran, and Bentyl for pain relief. Patient Language: Monegasque Prescriptions: New omeprazole 40 mg capsule,delayed release(DR/EC) 40 mg PO DAILY Qty: 30 0RF dicyclomine 20 mg tablet 20 mg PO TID Qty: 14 0RF ondansetron 8 mg tablet,disintegrating 8 mg PO Q12H Qty: 14 0RF No Action cholecalciferol (vitamin D3) 50 mcg (2,000 unit) tablet 50 mcg PO DAILY Qty: 90 3RF duloxetine 60 mg capsule,delayed release(DR/EC) 60 mg PO DAILY Qty: 30 11RF albuterol sulfate [Ventolin HFA] 90 mcg/actuation HFA aerosol inhaler 2 puff inhalation Q4H PRN (Reason: shortness of breath or wheezing) Qty: 8.5 3RF fluticasone propion-salmeterol [Advair HFA] 115-21 mcg/actuation HFA aerosol inhaler 2 puff inhalation BID Qty: 12 5RF lisinopril 20 mg tablet 20 mg PO BID Qty: 180 2RF buspirone 15 mg tablet 15 mg PO BID Qty: 60 8RF fluticasone propionate 50 mcg/actuation spray,suspension See Rx Instructions .ROUTE .COMPLEX Qty: 16 0RF Dose Instruction: SHAKE LIQUID AND USE 1 SPRAY IN EACH NOSTRIL TWICE DAILY Rx Instructions: SHAKE LIQUID AND USE 1 SPRAY IN EACH NOSTRIL TWICE DAILY pregabalin 75 mg capsule 75 mg PO BID Qty: 60 5RF amitriptyline 50 mg tablet 50 mg PO TID Qty: 90 5RF Wegovy 1.7 mg/0.75 mL pen injector 1.7 mg subcut WEEKLY Qty: 20 2RF zolpidem 10 mg tablet 10 mg PO QHS PRN (Reason: insomnia) Qty: 30 5RF tizanidine 4 mg tablet 6 mg PO QID PRN (Reason: muscle spasticity) Qty: 40 3RF Follow-up/Referrals: Troy Carter MD [Primary Care Provider] - Time of Disposition: 00:10
[2025-04-13] MEDS: SODIUM CHLORIDE 0.9% IV 1,000 ML 999 ML IV CONT (20:41)
[2025-04-13 20:50] LABS: BEDSIDEPREGUCG Negative (Negative)
[2025-04-13 20:59] LABS: Hematocrit 44.1 % (37.0-47.0); Hemoglobin 14.4 g/dL (12.0-15.0); Immature Granulocyte Percent A 0.6 % (0-0.5); Lymphocytes Absolute Auto 3.85 K/mm3 (0.9-3.2); Mean Corpuscular HGB Conc 32.7 g/dl (32-36); Mean Corpuscular Hemoglobin 30.2 pg (26-34); Mean Corpuscular Volume 92.5 fl (80-100); Nucleated Red Blood Cells Absolute Auto 0.000 K/mm3 (0.0-0.012); Nucleated Red Blood Cells Perc 0.0 % (0.0-0.2); Platelet Count Result 249 k/mm3 (150-375); Red Blood Count 4.77 M/mm3 (4.2-5.4); White Blood Count 12.2 K/mm3 (4.5-10.0)
[2025-04-13 21:00] VITALS: BP 169/94; PULSE 79; RESP 20; O2SAT 100
[2025-04-13 21:01] LABS: Add Urine Microscopic? NO; Appearance Urine Clear (Clear); Glucose Urine UA Negative (Negative); Leukocyte Esterase Ur Negative LEU/UL (Negative); Nitrate Urine Negative (Negative); Specific Grav Ur 1.006 (1.001-1.035)
[2025-04-13 21:13] LABS: INR 0.9; Prothrombin Time 12.8 Seconds (11.1-14.7)
[2025-04-13 21:14] LABS: Partial Thromboplastin Time 38.3 Seconds (22.3-36.8)
[2025-04-13] MEDS: HYDROmorphone HCL INJ (*CRX) 2 MG/ML VIAL 0.5 MG IV PUSH (21:17)
[2025-04-13 21:23] LABS: Alanine Aminotransferase 26 U/L (6-35); Albumin Level 4.4 g/dL (3.5-5.1); Alkaline Phosphatase 90 U/L (38-126); Anion Gap 11 mmol/L (4-12); Aspartate Amino Transferase 34 U/L (14-36); Bilirubin,Total 0.4 mg/dL (0.2-1.3); Blood Urea Nitrogen 8 mg/dL (7-17); Calcium 9.3 mg/dL (8.4-10.2); Carbon Dioxide 24 mmol/L (22-30); Chloride 106 mmol/L (98-107); Estimated CRCL calculation 77 ml/min; Estimated Glomerular Filt Rate > 60; Glucose 95 mg/dL (65-110); Lipase 131 U/L (23-300); Potassium 3.8 mmol/L (3.4-5.0); Sodium 141 mmol/L (137-145); Total Protein 7.7 g/dL (6.3-8.2)
[2025-04-13 21:30] VITALS: BP 153/112; PULSE 79; RESP 20; O2SAT 100
[2025-04-13 21:32] LABS: Troponin I < 0.012 ng/mL (0.000-0.034)
[2025-04-13 23:15] VITALS: O2SAT 100
[2025-04-13 23:30] VITALS: O2SAT 98
[2025-04-13 23:45] VITALS: O2SAT 99
[2025-04-14] VITALS: O2SAT 99
[2025-04-14 00:14] VITALS: BP 146/107; PULSE 74; RESP 18; O2SAT 99
== END 2025-04-14 00:25 | disposition home or self-care (01) ==
PROVIDERS: Emergency Provider Registered Nurse; PCP Family Medicine Adolescent Medicine
DX: K29.70 Gastritis, unspecified, without bleeding (principal); K20.90 Esophagitis, unspecified without bleeding; I10 Essential (primary) hypertension; J45.30 Mild persistent asthma, uncomplicated; M79.7 Fibromyalgia; K58.9 Irritable bowel syndrome, unspecified; G47.33 Obstructive sleep apnea (adult) (pediatric); F41.9 Anxiety disorder, unspecified; F32.A Depression, unspecified; F17.200 Nicotine dependence, unspecified, uncomplicated; Z97.5 Presence of (intrauterine) contraceptive device; Z79.899 Other long term (current) drug therapy
CPT/HCPCS: 36415; 74177; 80053; 81003; 81025; 83690; 84484; 85025; 85610; 85730; 93005; 96361; 96374; 99284; J1171; J7030; Q9967

== ENCOUNTER 2025-05-01 07:47 | Outpatient (CLI) | payer MEDICARE, SELFPAY ==
--- NOTE | ~2025-05-01 | US_ITS ---
EXAM: US abdomen limited - 05/01/2025 7:55 CDT History: 49 years old Female with R10.11 - Right upper quadrant pain TECHNIQUE: Ultrasound of the abdomen was performed. COMPARISON: None available. FINDINGS: LIVER: Increased echogenicity, compatible with mild hepatic steatosis. No discrete liver masses are noted. INTRAHEPATIC BILE DUCTS: Nondilated. COMMON BILE DUCT: 4 mm. Normal caliber. GALLBLADDER: Cholelithiasis without evidence of gallbladder wall thickening or pericholecystic fluid. The gallbladder was not tender to transducer palpation. PANCREAS: Visualized portions are normal. ASCITES: None. Right kidney: Right kidney measures 10.2 cm. No nephrolithiasis or hydronephrosis. IMPRESSION: Cholelithiasis. Mild hepatic steatosis. Reviewed, dictated and finalized at location A.
== END 2025-05-01 07:48 | disposition home or self-care (01) ==
LOC: MICIMG 07:48
PROVIDERS: PCP Family Medicine Adolescent Medicine; Visit Provider Family Medicine
DX: R10.11 Right upper quadrant pain (principal); K80.20 Calculus of gallbladder without cholecystitis without obstruction; K76.0 Fatty (change of) liver, not elsewhere classified
CPT/HCPCS: 76705

== ENCOUNTER 2025-05-19 16:09 | Emergency (ER) | payer MEDICARE, SELFPAY ==
--- NOTE | ~2025-05-19 | CT_ITS ---
EXAMINATION: CT abdomen pelvis w con DATE: 05/19/2025 20:28 INDICATION: Right upper quadrant pain TECHNIQUE: Computed tomography (CT) of the abdomen and pelvis was performed with 100 cc Omnipaque 350 intravenous contrast. The dose-length product was 744.73 mGy-cm. Automated exposure control and iterative reconstruction technique were employed. COMPARISON: CT dated 04/13/2025 FINDINGS: Lung bases unremarkable. Heart size normal. No significant pleural or pericardial effusion. No significant vascular abnormality. No lymphadenopathy. The liver, spleen, pancreas, adrenal glands and kidneys are normal. Gallbladder is present. Normal appendix. There is an IUD in the uterus. No significant vascular abnormality. No lymphadenopathy. There is levoscoliosis of the lumbar spine. There is moderate lumbar spondylosis at L4-5 and L5-S1. No free air or free fluid. IMPRESSION: 1. No acute abdominal abnormality. Reviewed, dictated and finalized at location O.
--- OUTSIDE RECORDS SUMMARY | 2025-05-19 16:12 | XMS_ITS | Clinical Summary ---
Author Organization [facility] Address [address] [place] [address] Care Team Providers Care Service Dispatcher Name Role Phone Troy Carter MD Primary [...] 2013? 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 Gender Identity Female 05/29/2023 10:52 AM CDT Sexual Orientation Not on file Obstetrics History Last Filed Vital Signs Vital Sign Reading Time Taken Comments Blood Pressure 126/86 05/07/2024 8:17 AM CDT Pulse 91 05/07/2024 8:17 AM CDT Temperature 36.7 C (98 F) 05/07/2024 8:17 AM CDT Respiratory Rate 16 07/31/2023 10:3 3 AM CHEESE PANCAKE ROLLER Oxygen Saturation - - Inhaled Oxygen Concentration [...] Well Visit/Exam 18-64 1995 Covid-19 Vaccine (3 - 2024-2 6 season) 2025 01/14/2021, 12/24/2020 Influenza Vaccine (#1) 2025 07/08/2020 Pneumococcal vaccine <65 Aged Out No longer eligible based on patient's age to complete this topic Medical Devices Implanted Type Area Boilermaker Pipe Fitter Device Identifier Shelf Expiration Date Model / Serial / Lot Orthopedic Hardware-Left Ankle Ankle Insurance [employer] MEDICARE PPO [employer] MEDICARE PPO Care Teams Service Dispatcher Relationship Specialty Start Date End Date Troy Carter MD PCP - General Family Medicine 04/02/21
--- OUTSIDE RECORDS SUMMARY | 2025-05-19 16:12 | XMS_ITS | Clinical Summary ---
Author Organization [facility] Address [facility] [place] [address] Care Team Providers Care Laboratory Apparatus Glass Grinder Name Role Phone Troy Carter MD Primary Care Provider +1- [phone] Social History Tobacco Use Types Packs/Day Years [...] Screening 2017 COVID-19 Vaccine (2023-2 5 season) 2025 Meningococcal B Vaccine Aged Out No l [...] age to complete this topic Care Teams Laboratory Apparatus Glass Grinder Relationship Specialty Start Date End Date Troy Carter MD [address] [place] [id number] PCP - General 03/24/16
[2025-05-19 16:18] VITALS: BP 150/92; PULSE 96; RESP 17; TEMP 36.8; O2SAT 100
--- NOTE | 2025-05-19 17:40 | ED_ITS ---
HPI - Abdominal Pain General Chief Complaint: Abdominal Pain Stated Complaint: RUQ pain Time Seen by Provider: 05/19/25 17:14 Source: patient Mode of arrival: ambulatory Limitations: no limitations History of Present Illness HPI narrative: This is a 49 year old female that presents to the ER for right upper quadrant abdominal pain. Ongoing over the last month. Reports the pain radiates to her back. No known alleviating or exacerbating factors. Reports some diarrhea. Denies fever, vomiting, dysuria. Related Data Allergies Allergy/AdvReac Type Severity Reaction Status Date / Time No Known Allergies Allergy Verified 05/19/25 17:04 Review of Systems 2 Review of Systems: All systems reviewed & are unremarkable except as noted in HPI and below PMFSH Past Medical History Medical History (Updated 05/19/25 @ 21:50 by Dorcas Ferrari PA-C) Obstructive sleep apnea (adult) (pediatric) Fibromyalgia Anxiety Depression Chronic headaches Trochanteric bursitis of right hip Lumbar stenosis Lumbar spondylosis Bilateral sciatica Mild persistent asthma IBS (irritable bowel syndrome) Hypertension Surgical History Surgical History History of back surgery H/O foot surgery Family History Family History Mother Cervical cancer Grandparent Breast cancer Heart disease Cerebrovascular accident Father Heart disease Diabetes mellitus Other Arthritis Asthma Depression Hypertension Social History Social History Smoking status: Former smoker Second hand tobacco smoke exposure: No Alcohol intake: never Substance use: current Substance use type: marijuana Other substance usage details: Daily Living arrangements: with family Occupation/Education: other Gender identity (if verbalized by the patient): Female Sexual Orientation (if Verbalized by the Patient): Straight or Heterosexual Spiritual care concerns: No Agree to blood products: Yes Exam 2 Narrative: GENERAL: Well-appearing, well-nourished, and in no acute distress. HEAD: Normocephalic, atraumatic. EYES: EOMI. CHEST: Clear to auscultation. No respiratory distress. No wheezes rales or rhonchi HEART: Regular rate and rhythm. No murmur heard. Normal peripheral pulses. ABDOMEN: Soft, nondistended, normal active bowel sounds. Mild tenderness to palpation in the right upper quadrant, without guarding EXTREMITIES: Normal range of motion. No edema. SKIN: Warm, dry, no rash. NEURO: No focal deficits. Alert and oriented x3. PSYCH: Normal mood and affect Course Vital Signs Vital signs: Vital Signs Temperature 98.2 F 05/19/25 16:18 Pulse Rate 96 05/19/25 16:18 Respiratory Rate 17 05/19/25 16:18 Blood Pressure 150/92 H 05/19/25 16:18 Pulse Oximetry 100 05/19/25 16:18 Oxygen Delivery Room Air 05/19/25 16:18 Temperature 98.2 F 05/19/25 16:18 Pulse Rate 96 05/19/25 16:18 Respiratory Rate 17 05/19/25 16:18 Blood Pressure 150/92 H 05/19/25 16:18 Pulse Oximetry 100 05/19/25 16:18 Oxygen Delivery Room Air 05/19/25 16:18 MDM - Abdominal Pain MDM Narrative Medical decision making narrative: Patient presents the emergency department for right upper quadrant abdominal pain. Ongoing over the last month. She is afebrile and nontoxic appearing. Her vitals are stable. CBC with mild leukocytosis to 10.3. Metabolic panel with mild transaminitis. Lipase is normal. Urine without evidence of infection. test is negative. CT abdomen pelvis without acute findings. Patient instructed on on low-fat diet. Will be given follow-up with general surgery for further evaluation. She was given warnings to return to the ER Differential Diagnosis Differential diagnosis: Likely other (GERD, biliary colic, esophagitis) Medical Records Attestation: I reviewed the patient's medical records. Medical records narrative: FINDINGS: LIVER: Increased echogenicity, compatible with mild hepatic steatosis. No discrete liver masses are noted. INTRAHEPATIC BILE DUCTS: Nondilated. COMMON BILE DUCT: 4 mm. Normal caliber. GALLBLADDER: Cholelithiasis without evidence of gallbladder wall thickening or pericholecystic fluid. The gallbladder was not tender to transducer palpation. PANCREAS: Visualized portions are normal. ASCITES: None. Right kidney: Right kidney measures 10.2 cm. No nephrolithiasis or hydronephrosis. IMPRESSION: Cholelithiasis. Mild hepatic steatosis. Lab Data Attestation: I reviewed the patient's lab results. 05/19/25 18:17 05/19/25 18:17 Labs: Lab Results 05/19/25 05/19/25 Range/Units 18:17 18:21 WBC 10.3 H (4.5-10.0) K/mm3 RBC 4.75 (4.2-5.4) M/mm3 Hgb 14.3 (12.0-15.0) g/dL Hct 42.9 (37.0-47.0) % MCV 90.3 (80-100) fl MCH 30.1 (26-34) pg MCHC 33.3 (32-36) g/dl RDW 12.9 (11.5-14.5) % Plt Count 239 (150-375) k/mm3 MPV 10.2 (7.4-10.4) fl Immature Gran % (Auto) 0.4 (0-0.5) % Neut % (Auto) 64.5 (45.5-73.1) % Lymph % (Auto) 28.7 (18.3-44.2) % [place] % (Auto) 4.1 (2.6-8.5) % Eos % (Auto) 1.3 (0-4.4) % Baso % (Auto) 1.0 (0.2-1.2) % Lymph # (Auto) 2.96 (0.9-3.2) K/mm3 [place] # (Auto) 0.4 (0.1-0.6) K/mm3 Eos # (Auto) 0.1 (0-0.3) K/mm3 Baso # (Auto) 0.1 (0.0-0.1) K/mm3 Abs Immat Gran (auto) 0.04 H (0.00-0.031) K/mm3 Absolute Neuts (auto) 6.7 (1.3-6.7) K/mm3 Absolute Nucleated RBC 0.000 (0.0-0.012) K/mm3 Nucleated RBC % 0.0 (0.0-0.2) % D-Dimer 0.27 (<0.48) ug/mL Sodium 139 (137-145) mmol/L Potassium 3.9 (3.4-5.0) mmol/L Chloride 103 (98-107) mmol/L Carbon Dioxide 28 (22-30) mmol/L Anion Gap 8 (4-12) mmol/L BUN 10 (7-17) mg/dL Creatinine 0.76 (0.7-1.0) mg/dL Estim Creat Clear Calc 83 ml/min Estimated GFR > 60 (59 - ) Glucose 97 (65-110) mg/dL Calcium 9.3 (8.4-10.2) mg/dL Total Bilirubin 0.2 (0.2-1.3) mg/dL AST 40 H (14-36) U/L ALT 36 H (6-35) U/L Alkaline Phosphatase 91 (38-126) U/L Total Protein 7.7 (6.3-8.2) g/dL Albumin 4.5 (3.5-5.1) g/dL Lipase 137 (23-300) U/L Urine Color Yellow (Yellow) Urine Appearance Clear (Clear) Urine pH 6.5 (5.0-9.0) Ur Specific [place] 1.005 (1.001-1.035) Urine Protein Negative (Negative) mg/dL Urine Glucose (UA) Negative (Negative) mg/dL Urine Ketones Negative (Negative) mg/dL Ur Blood (Man) Negative (Negative) Urine Nitrate Negative (Negative) Urine Bilirubin Negative (Negative) Urine Urobilinogen 0.2 (<2.0) mg/dL Leukocyte Esterase Rfl Negative (Negative) MIGNON/UL POC Urine HCG, Qual Negative (Negative) Imaging Data Radiologist's impression: ITS Impressions Abdomen/Pelvis CT 05/19/25 20:30 IMPRESSION: 1. No acute abdominal abnormality. Critical Care Time Critical Care Time Critical Care Time: No Discharge Plan Discharge Clinical Impression: Chronic right upper quadrant pain Patient Disposition: Home Condition: Stable Instructions: Biliary Colic (ED), Low Fat Diet (ED) Additional Instructions: Return to the ER if you experience fever, abdominal pain with nausea and vomiting, you are unable to keep down liquids or solids, or any other symptoms that are concerning to you Remain well hydrated. Low fat diet. Pain medication as needed Follow up with general surgery Patient Language: Mongolian Prescriptions: New hydrocodone-acetaminophen 5-325 mg tablet 1 tablet PO Q6H PRN (Reason: pain) Qty: 14 0RF No Action cholecalciferol (vitamin D3) 50 mcg (2,000 unit) tablet 50 mcg PO DAILY Qty: 90 3RF duloxetine 60 mg capsule,delayed release(DR/EC) 60 mg PO DAILY Qty: 30 11RF dicyclomine 20 mg tablet 20 mg PO QID PRN (Reason: abdominal pain) Qty: 30 0RF omeprazole 40 mg capsule,delayed release(DR/EC) 40 mg PO DAILY Qty: 30 0RF ondansetron 8 mg tablet,disintegrating 8 mg PO Q12H Qty: 14 0RF albuterol sulfate [Ventolin HFA] 90 mcg/actuation HFA aerosol inhaler 2 puff inhalation Q4H PRN (Reason: shortness of breath or wheezing) Qty: 8.5 3RF fluticasone propion-salmeterol [Advair HFA] 115-21 mcg/actuation HFA aerosol inhaler 2 puff inhalation BID Qty: 12 5RF fluticasone propionate 50 mcg/actuation spray,suspension See Rx Instructions .ROUTE .COMPLEX Qty: 16 0RF Dose Instruction: SHAKE LIQUID AND USE 1 SPRAY IN EACH NOSTRIL TWICE DAILY Rx Instructions: SHAKE LIQUID AND USE 1 SPRAY IN EACH NOSTRIL TWICE DAILY zolpidem 10 mg tablet 10 mg PO QHS PRN (Reason: insomnia) Qty: 30 5RF tizanidine 4 mg tablet 6 mg PO QID PRN (Reason: muscle spasticity) Qty: 40 3RF pregabalin 75 mg capsule 75 mg PO BID Qty: 60 5RF buspirone 15 mg tablet 15 mg PO BID Qty: 60 8RF amitriptyline 50 mg tablet 50 mg PO TID Qty: 90 8RF Zepbound 2.5 mg/0.5 mL pen injector 2.5 mg subcut WEEKLY Qty: 2 0RF Rx Instructions: for 4 weeks lisinopril 20 mg tablet 20 mg PO BID Qty: 180 2RF Follow-up/Referrals: Alexis Montemayor DO [Physician, General Surgery] Troy Carter MD [Primary Care Provider, Family Practice]
[2025-05-19 18:23] LABS: BEDSIDEPREGUCG Negative (Negative)
[2025-05-19 18:27] LABS: Hematocrit 42.9 % (37.0-47.0); Hemoglobin 14.3 g/dL (12.0-15.0); Immature Granulocyte Percent A 0.4 % (0-0.5); Lymphocytes Absolute Auto 2.96 K/mm3 (0.9-3.2); Mean Corpuscular HGB Conc 33.3 g/dl (32-36); Mean Corpuscular Hemoglobin 30.1 pg (26-34); Mean Corpuscular Volume 90.3 fl (80-100); Nucleated Red Blood Cells Absolute Auto 0.000 K/mm3 (0.0-0.012); Nucleated Red Blood Cells Perc 0.0 % (0.0-0.2); Platelet Count Result 239 k/mm3 (150-375); Red Blood Count 4.75 M/mm3 (4.2-5.4); White Blood Count 10.3 K/mm3 (4.5-10.0)
[2025-05-19 18:29] LABS: Add Urine Microscopic? NO; Appearance Urine Clear (Clear); Glucose Urine UA Negative (Negative); Leukocyte Esterase Ur Negative LEU/UL (Negative); Nitrate Urine Negative (Negative); Specific Grav Ur 1.005 (1.001-1.035)
[2025-05-19 18:42] LABS: Alanine Aminotransferase 36 U/L (6-35); Albumin Level 4.5 g/dL (3.5-5.1); Alkaline Phosphatase 91 U/L (38-126); Anion Gap 8 mmol/L (4-12); Aspartate Amino Transferase 40 U/L (14-36); Bilirubin,Total 0.2 mg/dL (0.2-1.3); Blood Urea Nitrogen 10 mg/dL (7-17); Calcium 9.3 mg/dL (8.4-10.2); Carbon Dioxide 28 mmol/L (22-30); Chloride 103 mmol/L (98-107); Estimated CRCL calculation 83 ml/min; Estimated Glomerular Filt Rate > 60; Glucose 97 mg/dL (65-110); Lipase 137 U/L (23-300); Potassium 3.9 mmol/L (3.4-5.0); Sodium 139 mmol/L (137-145); Total Protein 7.7 g/dL (6.3-8.2)
[2025-05-19] MEDS: KETOROLAC 15 MG/ML VIAL (*BKC) IV PUSH (22:10)
== END 2025-05-19 22:17 | disposition home or self-care (01) ==
PROVIDERS: Emergency Provider Physician Assistant; PCP Family Medicine Adolescent Medicine
DX: R10.11 Right upper quadrant pain (principal); G89.29 Other chronic pain; I10 Essential (primary) hypertension; J45.30 Mild persistent asthma, uncomplicated; G47.33 Obstructive sleep apnea (adult) (pediatric); M79.7 Fibromyalgia; K58.9 Irritable bowel syndrome, unspecified; F41.9 Anxiety disorder, unspecified; F32.A Depression, unspecified; Z87.891 Personal history of nicotine dependence; Z79.899 Other long term (current) drug therapy
CPT/HCPCS: 36415; 74177; 80053; 81003; 81025; 83690; 85025; 85380; 96374; 99284; J1885; Q9967